=== PATIENT | female | born 1995 | race African-American/Black ===

== ENCOUNTER 2017-12-02 17:43 | Emergency (ER) | payer MEDICAID ==
[2017-12-02 17:54] VITALS: TEMP 98.1; O2SAT 98
--- NOTE | 2017-12-02 18:14 | CPEKG ---
Heart Rate: 59 RR Interval: 1017 P-R Interval: 184 QRSD Interval: 88 QT Interval: 416 QTC Interval: 413 P [place]: 32 QRS [place]: 34 T Wave [place]: -2 EKG Severity - BORDERLINE ECG - EKG Impression: SINUS RHYTHM EKG Impression: BORDERLINE T ABNORMALITIES, INFERIOR LEADS Electronically Signed By: Eliseo Hodges 04-Dec-2017 08:53:41
[2017-12-02] MEDS ORDERED: ASPIRIN 81 MG CHEWABLE TAB PO ONE (18:25)
--- NOTE | 2017-12-02 18:29 | EDPHY ---
H & P Stated Complaint: Epigastric pain x 2 hrs after getting txt about her rent - Personal History LMP (Females 10-55): 22-28 Days Ago Current Tetanus Diphtheria and Acellular Pertussis (TDAP): Yes - Medical/Surgical History Other PMH: anxiety - Social History Smoking Status: Never smoked Time Seen by Provider: 12/02/17 18:12 HPI/ROS: CHIEF COMPLAINT: Epigastric and chest pain since 2:00 p.m. Today HISTORY OF PRESENT ILLNESS: 22-year-old female history of POTS drove to the ER complaining of epigastric and chest pain which started 2:00 p.m. Today after she received a text message with "very disturbing news". No radiation of symptoms. Pain described as epigastric and midsternal, intermittently pleuritic however not consistently pleuritic. No prior history of similar. No nausea or vomiting. No dyspnea. No trauma. No illicit drug use. No cocaine use. Nonsmoker. No exogenous estrogen use. No coagulopathic disorder. No recent illness. No cough. REVIEW OF SYSTEMS: A ten point review of systems was performed and is negative with the exception of the items mentioned in the HPI PAST MEDICAL & SURGICAL HISTORY: POTS SOCIAL HISTORY:Nonsmoker. No cocaine use. FAMILY HISTORY: no family history of premature coronary artery disease, no family history of coagulopathic disorder, no family history of sudden unexplained PHYSICAL EXAM (Prior to examination, patient consented to physical exam, hands were washed and my usual and customary physical exam procedures followed) 1) GENERAL: Well-developed, well-nourished, alert and oriented. Appears anxious 2) HEAD: Normocephalic, atraumatic 3) HEENT: Pupils equal, round, reactive to light bilaterally. Sclera anicteric. Nasopharynx, oropharynx, clear, no lesions. 4) NECK: Full range of motion, no meningeal signs. No bruit 5) LUNGS: Clear auscultation bilaterally, no wheezes, no rhonchi, no retractions. 6) HEART: Regular rate and rhythm, no murmur, no heave, no gallop. No chest wall pain 7) ABDOMEN: No guarding, no rebound, no focal tenderness, negative McBurney's, negative Moody's, negative Rovsing's, negative peritoneal sign, 8) MUSCULOSKELETAL: Moving all extremities, no focal areas of tenderness, no obvious trauma. No peripheral edema or discoloration. Negative Homans no palpable cord 9) BACK: No CVA tenderness, no midline vertebral tenderness, no fluctuance, no step-off, no obvious trauma, no visual or palpable abnormality. 10) SKIN: No rash, no petechiae. 11) Psychiatric: Patient is oriented X 3, there is no agitation. DIFFERENTIAL DIAGNOSIS: In no particular order, including but not limited to myocardial ischemia, pericarditis, myocarditis, pulmonary embolus, chest wall pain, pleural inflammation and pulmonary infectious causes. (Maicol Motta) Constitutional: Initial Vital Signs Temperature (C) 36.7 C 12/02/17 17:45 Heart Rate 84 12/02/17 17:45 Respiratory Rate 18 12/02/17 17:45 Blood Pressure 109/57 L 12/02/17 17:45 O2 Sat (%) 98 12/02/17 17:45 O2 Delivery Mode Room Air Allergies/Adverse Reactions: acetaminophen [From Vicodin] Allergy (Intermediate, Verified 12/02/17 17:51) Hives hydrocodone [From Vicodin] Allergy (Intermediate, Verified 12/02/17 17:51) Hives Home Medications: Medication Instructions Recorded NK [No Known Home Meds] 12/02/17 Medical Decision Making - Diagnostics Imaging Results: Imaging Impressions Chest X-Ray 12/02/17 18:25 Impression: Mild airways disease/bronchitis. No pneumonia. Images reviewed by myself (Maicol Motta) ED Course/Re-evaluation: 8:07 p.m.: Patient was re-evaluated with serial examinations. Most recent evaluation she is breathing comfortably, she appears well. I discussed the case with secondary supervising physician Dr. Martha Chery in the ER. Doubt PE , doubt CA, doubt myocarditis or pericarditis. Doubt pancreatitis. Specific etiology of her chest pain is not completely clear at this time. Given her lack of risk factors and lack of this family history, I do not think that further diagnostic studies or admission is currently indicated. She feels comfortable being discharged. All questions and concerns addressed by myself. ( Maicol Motta) Other Provider: The patient was evaluated and managed by the Physician Weight Tester. I discussed the patient's presentation and course with the midlevel provider with them and agree with the evaluation. My co-signature indicates that I have reviewed this chart and I agree with the findings and plan of care as documented. I am the secondary supervising physician. (Martha Chery) - Data Points Laboratory Results: Laboratory Results 12/02/17 18:05 18 18:05 18 18 12/02/17 18:05 18:05 18:05 WBC RBC Hgb Hct MCV MCH MCHC RDW Plt Count MPV Neut % (Auto) Lymph % (Auto) [place] % (Auto) Eos % (Auto) Baso % (Auto) Nucleat RBC Rel Count Absolute Neuts (auto) Absolute Lymphs (auto) Absolute Monos (auto) Absolute Eos (auto) Absolute Basos (auto) Absolute Nucleated RBC Immature Gran % Immature Gran # D-Dimer 0.29 ug/mLFEU ug/mLFEU (0.00-0.50) Sodium 138 mEq/L mEq/L (135-145) Potassium 3.9 mEq/L mEq/L (3.5-5.2) Chloride 103 mEq/L mEq/L (97-110) Carbon Dioxide 21 mEq/l L mEq/l (22-31) Anion Gap 14 mEq/L mEq/L (8-16) BUN 18 mg/dL mg/dL (7-23) Creatinine 0.9 mg/dL mg/dL (0.6-1.0) Estimated GFR > 60 Glucose 91 mg/dL mg/dL (70-100) Calcium 9.8 mg/dL mg/dL (8.5-10.4) Total Bilirubin 0.3 mg/dL mg/dL (0.1-1.4) Conjugated Bilirubin 0.3 mg/dL mg/dL (0.0-0.5) Unconjugated Bilirubin 0.0 mg/dL mg/dL (0.0-1.1) AST 27 IU/L IU/L (14-46) ALT 43 IU/L IU/L (9-52) Alkaline Phosphatase 112 IU/L IU/L (38-126) Troponin I < 0.012 ng/mL ng/mL (0.000-0.034) Total Protein 7.9 g/dL g/dL (6.3-8.2) Albumin 4.5 g/dL g/dL (3.5-5.0) Lipase 132 IU/L IU/L (23-300) Beta HCG, Qual NEGATIVE 12/02/17 18:05 WBC 11.43 10^3/uL H 10^3/uL (3.80-9.50) RBC 4.62 10^6/uL 10^6/uL (4.18-5.33) Hgb 15.0 g/dL g/dL (12.6-16.3) Hct 44.2 % % (38.0-47.0) MCV 95.7 fL fL (81.5-99.8) MCH 32.5 pg pg (27.9-34.1) MCHC 33.9 g/dL g/dL (32.4-36.7) RDW 12.7 % % (11.5-15.2) Plt Count 309 10^3/uL 10^3/uL (150-400) MPV 9.3 fL fL (8.7-11.7) Neut % (Auto) 55.2 % % (39.3-74.2) Lymph % (Auto) 34.5 % % (15.0-45.0) [place] % (Auto) 7.7 % % (4.5-13.0) Eos % (Auto) 1.6 % % (0.6-7.6) Baso % (Auto) 0.5 % % (0.3-1.7) Nucleat RBC Rel Count 0.0 % % (0.0-0.2) Absolute Neuts (auto) 6.31 10^3/uL 10^3/uL (1.70-6.50) Absolute Lymphs (auto) 3.94 10^3/uL H 10^3/uL (1.00-3.00) Absolute Monos (auto) 0.88 10^3/uL H 10^3/uL (0.30-0.80) Absolute Eos (auto) 0.18 10^3/uL 10^3/uL (0.03-0.40) Absolute Basos (auto) 0.06 10^3/uL 10^3/uL (0.02-0.10) Absolute Nucleated RBC 0.00 10^3/uL 10^3/uL (0-0.01) Immature Gran % 0.5 % % (0.0-1.1) Immature Gran # 0.06 10^3/uL 10^3/uL (0.00-0.10) D-Dimer Sodium Potassium Chloride Carbon Dioxide Anion Gap BUN Creatinine Estimated GFR Glucose Calcium Total Bilirubin Conjugated Bilirubin Unconjugated Bilirubin AST ALT Alkaline Phosphatase Troponin I Total Protein Albumin Lipase Beta HCG, Qual Medications Given: Discontinued Medications Aspirin (Aspirin) 324 mg PO EDNOW ONE Stop: 12/02/17 18:26 Last Admin: 12/02/17 18:27 Dose: 324 mg Departure - Departure Disposition: Home, Routine, Self-Care Clinical Impression: Chest pain Condition: Good Instructions: Chest Pain (ED) Additional Instructions: Seek medical attention if you develop new or worsening chest pain, if you develop new or worsening shortness of breath, or any other symptoms that concern you. Referrals: Doris Weber MD [Medical Doctor] - 2-3 days, call for appt.
[2017-12-02 18:37] LABS: PLATELET COUNT 309 10^3/uL (150-400)
[2017-12-02 20:20] VITALS: BP 103/72; PULSE 76; RESP 16
== END 2017-12-02 20:15 | disposition home or self-care (01) ==
DX: R07.9 Chest pain, unspecified (principal)